=== PATIENT | female | born 1985 | race Caucasian/White ===

== ENCOUNTER 2020-12-21 12:14 | Emergency (ER) | payer OTHER ==
[~2020-12-21] VITALS: Ht 172.7 cm; Wt 60.0 kg
[2020-12-21 12:17] VITALS: BP 133/77
--- NOTE | 2020-12-21 12:42 | PHYS DOC ---
Past History Past Medical History: No Pertinent History (KIM GAN APRN) Past Surgical History: No Surgical History (KIM GAN APRN) Alcohol Use: None (KIM GAN APRN) General Adult EDM: Chief Complaint: VAGINAL BLEEDING HPI: HPI: Patient is a 35-year-old female presents with vaginal bleeding with . Patient states that she was out running today when she started bleeding and having abdominal cramping. Patient is G2, P1. Patient has been doing IVF treatments and reports she is 5 weeks and 5 days since transfer. Patient denies health history. (KMI GAN APRN) Review of Systems: Review of Systems: Constitutional: Denies fever or chills Eyes: Denies change in visual acuity HENT: Denies nasal congestion or sore throat Respiratory: Denies cough or shortness of breath Cardiovascular: Denies chest pain or edema GI: Reports abdominal ramping nausea. Denies vomiting, bloody stools or diarrhea /Vaginal: Reports vaginal bleeding and clots, denies dysuria Musculoskeletal: Denies back pain or joint pain Integument: Denies rash Neurologic: Denies headache, focal weakness or sensory changes Endocrine: Denies polyuria or polydipsia Lymphatic: Denies swollen glands Psychiatric: Denies depression or anxiety (KIM GAN APRN) Physical Exam: PE: Constitutional: Well developed, well nourished, no acute distress, non-toxic appearance. [] HENT: Normocephalic, atraumatic, bilateral external ears normal, oropharynx moist, no oral exudates, nose normal. [] Eyes: PERRLA, EOMI, conjunctiva normal, no discharge. [] Neck: Normal range of motion, no tenderness, supple, no stridor. [] Cardiovascular:Heart rate regular rhythm, no murmur [] Lungs & Thorax: Bilateral breath sounds clear to auscultation [] Abdomen: Bowel sounds normal, soft, no tenderness, no masses, no pulsatile masses. [] Skin: Warm, dry, no erythema, no rash. [] Back: No tenderness, no CVA tenderness. [] Extremities: No tenderness, no cyanosis, no clubbing, ROM intact, no edema. [] Neurologic: Alert and oriented X 3, normal motor function, normal sensory function, no focal deficits noted. [] Psychologic: Affect normal, judgement normal, mood normal. [] (KIM GAN APRN) Current Patient Data: Vital Signs: Vital Signs Date Time Temp Pulse Resp B/P (MAP) Pulse Ox O2 Delivery O2 Flow Rate FiO2 12/21/20 12:17 97.9 67 16 133/77 (95) 100 Room Air (KIM GAN APRN) EKG: EKG: [] (KIM GAN APRN) Radiology/Procedures: Radiology/Procedures: []Site ID: [id number] First trimester OB ultrasound. INDICATION: 35 years Female Reason: VAGINAL BLEEDING WITH / Spl. Instructions: IVF WITH TRANSFER ON 11-30-20 . FINDINGS: There is a normal-appearing gestational sac catheter seen with no subchorionic hemorrhage noted. The mean sac diameter is 11 mm which would correspond with 5 weeks 6 days of gestation this would correlate with an DESHAWN of 08/17/2021. pole is not seen. There is a yolk sac seen. The maternal adnexa demonstrate normal appearance of the ovaries on the right measuring 2.7 x 3.3 x 1.6 cm. On the left side the 2.3 x 2.6 x 1.2 over a size seen with the a 1 cm hypoechoic, focal lesion may represent a hemorrhagic follicle. No hemorrhage in the pelvis or significant free fluid seen. IMPRESSION: There is an intrauterine with no embryo identified which could be due to early normal at this stage. Correlate with the beta hCG and the short-term follow-up ultrasound. Electronically signed by: Jabier Jaimes MD (12/21/2020 2:50 PM) [id number] (KIM GAN APRN) Heart Score: C/O Chest Pain: No Risk Factors: Risk Factors: DM, Current or recent (<one month) smoker, HTN, HLP, family history of CAD, obesity. Risk Scores: Score 0 - 3: 2.5% MACE over next 6 weeks - Discharge Home Score 4 - 6: 20.3% MACE over next 6 weeks - Admit for Clinical Observation Score 7 - 10: 72.7% MACE over next 6 weeks - Early Invasive Strategies (KIM GAN APRN) Course & Med Decision Making: Course & Med Decision Making Pertinent Labs and Imaging studies reviewed. (See chart for details) [] 35-year-old female who presents with vaginal bleeding and . Patient's been doing IVF and had the embryo transfer in November. Patient believes she is 5 weeks and 5 days since implantation. Patient is also reporting some cramping. Patient is G2, P1. CBC and BMP ordered. Quant hCG ordered and type and screen. Transvaginal ultrasound ordered to rule out ectopic. Patient does not have an OB that she is seen. She is currently in the process of moving and had the IVF done in [facility]. Hemoglobin is 13.1. Urine is positive. Quant beta hCG is 8361. UA is negative for infection. Blood type is a positive. Ultrasound shows intrauterine with no embryo identified which could be due to early normal at this stage. Instructed patient to follow-up in 48 hours for repeat quant. hCG and also ultrasound to to confirm or rule out IUP. Patient given strict return precautions. Patient is appreciative and okay with discharge plan. (KIM GAN APRN) Dragon Disclaimer: Dragon Disclaimer: This electronic medical record was generated, in whole or in part, using a voice recognition dictation system. (KIM GAN APRN) Attending Co-Sign The patient was seen and interviewed as well as examined at the bedside. The chart was reviewed. The case was discussed. Agree with the plan of care. (KAJAL MARTINEZ DO) Departure Departure: Impression: Primary Impression: Vaginal bleeding during Disposition: 01 HOME / SELF CARE / HOMELESS Condition: STABLE Referrals: PCP,NO (PCP) Patient Instructions: Vaginal Bleeding During , First Trimester Additional Instructions: He was seen in the emergency room for vaginal bleeding during . You need to return and 48 hours to have your beta hCG redrawn. If you have an increase in pain or vaginal bleeding please return to the emergency room. EMERGENCY DEPARTMENT GENERAL DISCHARGE INSTRUCTIONS Thank you for coming to [facility] (ED) today and trusting us with you care. We trust that you had a positivie experience in our Emergency Department. If you wish to speak to the department management, you may call the director at [phone]. YOUR FOLLOW UP INSTRUCTIONS ARE FOLLOWS: 1. Do you have a private Doctor? If you do not have a private doctor, please ask for a resource list of physicians or clinics that may be able to assist you with follow up care. 2. The Emergency Physician has interpreted your x-rays. The X-Ray specialist will also review them. If there is a change in the findings, you will be notified in 48 hours when at all possible. 3. A lab test or culture has been done, your results will be reviewed and you will be notified if you need a change in treatment. ADDITIONAL INSTRUCTIONS AND INFORMATION: 1. Your care today has been supervised by a physician who is specially trained in emergency care. Many problems require more than one evaluation for a complete diagnosis and treatment. We recommend that you schedule your follow up appointment as recommended to ensure complete treatment of you illness or injury. If you are unable to obtain follow up care and continue to have a problem, or if your condition worsens, we recommend that you return to the ED. 2. We are not able to safely determine your condition over the phone nor are we able to give sound medical advice over the phone. For these safety reasons, if you call for medical advice we will ask you to come to the ED for further evaluation. 3. If you have any questions regarding these discharge instructions please call the ED at [phone]. SAFETY INFORMATION: In the interest of safety, wellness, and injury prevention; we encourage you to wear your sealbelt, if you smoke; quite smoking, and we encourage family to use a protective helmet for bicycling and other sporting events that present an increased risk for head injury. IF YOUR SYMPTOMS WORSEN OR NEW SYMPTOMS DEVELOP, OR YOU HAVE CONCERNS ABOUT YOUR CONDITION; OR IF YOUR CONDITION WORSENS WHILE YOU ARE WAITING FOR YOUR FOLLOW UP APPOINTMEN T; EITHER CONTACT YOUR PRIMARY CARE DOCTOR, THE PHYSICIAN WHOSE NAME AND NUMBER YOU WERE GIVEN, OR RETURN TO THE ED IMMEDIATELY. KIM GAN APRN December 21, 2020 12:42 KAJAL MARTINEZ DO December 22, 2020 06:19
[2020-12-21 13:00] LABS: BASO % 1 % (0-3); EOS # 0.2 x10^3/uL (0.0-0.7); EOS % 3 % (0-3); HEMOGLOBIN 13.1 g/dL (12.0-15.5); LYMPH # 1.7 x10^3/uL (1.0-4.8); LYMPH % 22 % (24-48); MEAN CORPUSCULAR HEMOGLOBIN 28 pg (25-35); MEAN CORPUSCULAR HGB CONC 34 g/dL (31-37); MEAN CORPUSCULAR VOLUME 85 fL (79-100); MONO # 0.4 x10^3/uL (0.0-1.1); MONO % 5 % (0-9); NEUT # 5.5 x10^3uL (1.8-7.7); NEUT % 71 % (31-73); PLATELET COUNT 229 x10^3/uL (140-400); RED CELL DISTRIBUTION WIDTH 12.1 % (11.5-14.5); WHITE BLOOD COUNT 7.9 x10^3/uL (4.0-11.0)
[2020-12-21 13:12] LABS: CALCIUM 8.8 mg/dL (8.5-10.1); CREATININE 0.8 mg/dL (0.6-1.0); GFR 81.6; POTASSIUM 3.9 mmol/L (3.5-5.1)
[2020-12-21 13:42] LABS: BACTERIA,URINE 0 /HPF (0-FEW); BILIRUBIN,URINE NEG (NEG); CLARITY,URINE CLOUDY; COLOR,URINE YELLOW; GLUCOSE,URINE NEG (NEG); NITRITE,URINE NEG (NEG); RBC,URINE TNTC /HPF (0-2); SQUAMOUS EPITHELIAL CELL,UR OCC /LPF; UROBILINOGEN,URINE 0.2 mg/dL (0.2 mg/dL); WBC,URINE OCC /HPF (0-4)
--- NOTE | 2020-12-21 14:52 | RAD ---
Site ID: [id number] First trimester OB ultrasound. INDICATION: 35 years Female Reason: VAGINAL BLEEDING WITH / Spl. Instructions: IVF WITH T RANSFER ON 11-30-20 . FINDINGS: There is a normal-appearing gestational sac catheter seen with no subchorionic hemorrhage n oted. The mean sac diameter is 11 mm which would correspond with 5 weeks 6 days of gestation this wou ld correlate with an DESHAWN of 08/17/2021. pole is not seen. There is a yolk sac seen. The maternal adnexa demonstrate normal appearance of the ovaries on the right measuring 2.7 x 3.3 x 1 .6 cm. On the left side the 2.3 x 2.6 x 1.2 over a size seen with the a 1 cm hypoechoic, focal lesion may represent a hemorrhagic follicle. No hemorrhage in the pelvis or significant free fluid seen. IMPRESSION: There is an intrauterine with no embryo identified which could be due to early normal at this stage. Correlate with the beta hCG and the short-term follow-up ultrasound. Electronically signed by: Jabier Jaimes MD (12/21/2020 2:50 PM) [id number]
== END 2020-12-21 15:22 | disposition home or self-care (01) ==
LOC: ER 12:14
DX: O20.8 Other hemorrhage in early pregnancy (principal); Z3A.01 Less than 8 weeks gestation of pregnancy
CPT/HCPCS: 36415; 76801; 76817; 80048; 81001; 81025; 84702; 85025; 86850; 86900; 86901; 99284-25

== ENCOUNTER 2020-12-23 15:20 | Emergency (ER) | payer OTHER ==
[~2020-12-23] VITALS: Ht 172.7 cm; Wt 60.0 kg
--- NOTE | 2020-12-23 15:58 | PHYS DOC ---
Past History Past Medical History: No Pertinent History Past Surgical History: No Surgical History Alcohol Use: None General Adult EDM: Chief Complaint: VAGINAL BLEEDING HPI: HPI: 35-year-old female presents on follow-up hCG. Patient was seen in this emergency room and had an ultrasound done that was inconclusive. She was told to come back and get a repeat hCG. The patient has been doing in vitro fertilization. [place]. She does not really have an OB here. She had further bleeding after her discharge with some clots and possible tissue. She is no longer bleeding. Review of Systems: Review of Systems: Constitutional: Denies fever or chills Eyes: Denies change in visual acuity HENT: Denies nasal congestion or sore throat Respiratory: Denies cough or shortness of breath Cardiovascular: Denies chest pain or edema GI: Denies abdominal pain, nausea, vomiting, bloody stools or diarrhea : Passed tissue and clots from the vagina Musculoskeletal: Denies back pain or joint pain Integument: Denies rash Neurologic: Denies headache, focal weakness or sensory changes Endocrine: Denies polyuria or polydipsia Lymphatic: Denies swollen glands Psychiatric: Denies depression or anxiety Physical Exam: PE: Constitutional: Well developed, well nourished, no acute distress, non-toxic appearance. [] HENT: Normocephalic, atraumatic, bilateral external ears normal, oropharynx moist, no oral exudates, nose normal. [] Eyes: PERRLA, EOMI, conjunctiva normal, no discharge. [] Neck: Normal range of motion, no tenderness, supple, no stridor. [] Cardiovascular: Heart rate regular rhythm, no murmur [] Lungs & Thorax: Bilateral breath sounds clear to auscultation [] Abdomen: Bowel sounds normal, soft, no tenderness, no masses, no pulsatile masses. [] Skin: Warm, dry, no erythema, no rash. [] Back: No tenderness, no CVA tenderness. [] Extremities: No tenderness, no cyanosis, no clubbing, ROM intact, no edema. [] Neurologic: Alert and oriented X 3, normal motor function, normal sensory function, no focal deficits noted. [] Psychologic: Affect normal, judgement normal, mood normal. [] EKG: EKG: [] Radiology/Procedures: Radiology/Procedures: [] Heart Score: C/O Chest Pain: N/A Risk Factors: Risk Factors: DM, Current or recent (<one month) smoker, HTN, HLP, family history of CAD, obesity. Risk Scores: Score 0 - 3: 2.5% MACE over next 6 weeks - Discharge Home Score 4 - 6: 20.3% MACE over next 6 weeks - Admit for Clinical Observation Score 7 - 10: 72.7% MACE over next 6 weeks - Early Invasive Strategies Course & Med Decision Making: Course & Med Decision Making Pertinent Labs and Imaging studies reviewed. (See chart for details) The patient's repeat hCG is 895. This is down considerably versus her previous visit. She appears to have a spontaneous miscarriage. I have advised that she follow-up her hCG to make sure it goes to 0. If she has any further complications or develops a fever she should return to the emergency room to make sure there are no retained products. Additional ultrasound is not indicated at this time. She is stable for discharge. [] Vikash Disclaimer: Vikash Disclaimer: This electronic medical record was generated, in whole or in part, using a voice recognition dictation system. Departure Departure: Impression: Primary Impression: Miscarriage Disposition: HOME / SELF CARE / HOMELESS Condition: STABLE Referrals: PCP,UNKNOWN (PCP) Patient Instructions: Miscarriage, Prht-sa-Puav KAJAL MARTINEZ DO December 23, 2020 15:58
[2020-12-23 17:00] VITALS: BP 133/77
== END 2020-12-23 17:00 | disposition home or self-care (01) ==
LOC: ER 15:20
DX: O03.9 Complete or unspecified spontaneous abortion without complication (principal); Z3A.01 Less than 8 weeks gestation of pregnancy
CPT/HCPCS: 36415; 84702; 99283-25